=== PATIENT | female | born 1955 | race Caucasian/White ===

== ENCOUNTER 2018-03-07 07:24 | Day surgery (SDC) | payer MEDICARE, OTHER ==
[2015-08-01 12:26] VITALS: BMI 30.7
[2018-03-07] MEDS ORDERED: Propofol 10 mg/ml Inj (20 ML) ONE (10:29)
[2018-03-07] MEDS ORDERED: Lidocaine 4% (Laryng-O-Jet) Kit MM ONE (10:29)
[2018-03-07] MEDS ORDERED: Lactated Ringer's 1,000 ML IV ONE (10:30)
[2018-03-07] MEDS ORDERED: Lidocaine Hydrochloride 5 ML INJ ONE (10:30)
[2018-03-07] MEDS ORDERED: Midazolam 2 MG/2 ML VIAL ONE (10:30)
--- NOTE | 2018-03-07 10:31 | CP.SDSHP ---
Same Day Surgery H & P - History Proposed Procedure: EGD Pre-Op Diagnosis: Dyspepsia, malabsorption - Previous Medical/Surgical History Cardiac: Hypertension Pulmonary: Emphysema/COPD Endocrine/Metabolic: Diabetes Comments: Hyperlipidemia, pulmonary fibrosis Previous Surgical History: Lung biopsy - Allergies Allergies: Allergies acetaminophen [From Tylenol] Allergy (Verified 03/07/18 07:48) ITCHING codeine Allergy (Verified 03/07/18 07:48) ITCHING - Current Medications Current Medications: See reconciliation sheet - Physical Exam General Appearance: WD obese female in NAD Vital Signs: Vital Signs 03/07/18 07:55 Temperature 97. F L Pulse Rate 90 Respiratory 20 Rate Blood Pressure 132/53 L O2 Sat by Pulse 100 Oximetry Mental Status: Alert & Oriented x3 Neuro: WNL Heart: WNL Lungs: WNL GI: WNL - {Optional Preform as Required} Abdomen: WNL - Impression Impression: Dyspepsia, malabsorption, iron and B12 deficiency - Date & Time Date: 03/07/18 Time: 10:31 Short Stay Discharge - Short Stay Discharge Admitting Diagnosis/Reason for Visit: HIATAL HERNIA Disposition: HOME/ ROUTINE
[2018-03-07 11:16] VITALS: TEMP 98
[2018-03-07 12:03] VITALS: O2SAT 100
[2018-03-07 12:07] VITALS: BP 145/67; PULSE 97; RESP 18
== END 2018-03-07 11:59 | disposition home or self-care (01) ==
LOC: C.ENDO 07:24
PROVIDERS: ATTEND Internal Medicine Gastroenterology
DX: K31.7 Polyp of stomach and duodenum (principal); K29.60 Other gastritis without bleeding; K44.9 Diaphragmatic hernia without obstruction or gangrene
CPT/HCPCS: 43270; 82948; 88305; 88313; 88342; J2250; J2704; J3010; J7120

== ENCOUNTER 2018-03-08 17:28 | Emergency (ER) | payer MEDICARE, OTHER ==
[2018-03-08 17:28] VITALS: BMI 30.7
[2018-03-08] MEDS ORDERED: Sodium Chloride 0.9% 1,000 ML IV ONE (19:44)
--- NOTE | 2018-03-08 19:46 | C.PDOC ---
History Of Present Illness <Shaun Rebolledo R - Last Filed: 03/08/18 23:36> <Regina Mcintyre - Last Filed: 03/09/18 14:04> 62 year old female presents to the emergency department with complaints of left flank pain that started today. Patient states that the pain is worse with movement. Patient has a history of nephrolithiasis in the past. (AmauryShaun R) Onset/Duration Of Symptoms: Days (1) Current Symptoms Are (Timing): Still Present Quality Of Discomfort: "Pain" Previous Symptoms: Back Pain (left flank) Exacerbating Factor(s): Movement <Shaun Rebolledo R - Last Filed: 03/08/18 23:36> <Regina Mcintyre - Last Filed: 03/09/18 14:04> Chief Complaint (Nursing): Back Pain Past Medical History Reviewed: Historical Data, Nursing Documentation, Vital Signs - Medical History PMH: Anxiety, Arthritis (B/L KNEE), Crohn's Disease, Depression, Diabetes, Fibromyalgia, HTN, Hypercholesterolemia, Osteoporosis Denies: Chronic Kidney Disease Surgical History: Appendectomy, Cholecystectomy, Endoscopy Family History: States: No Known Family Hx - Social History Hx Tobacco Use: Yes Hx Alcohol Use: No Hx Substance Use: No - Immunization History Hx Tetanus Toxoid Vaccination: No Hx Influenza Vaccination: No Hx Pneumococcal Vaccination: No <Shaun Rebolledo - Last Filed: 03/08/18 23:36> Vital Signs: Last Vital Signs Temp 97.7 F 03/08/18 22:33 Pulse 100 H 03/08/18 22:33 Resp 18 03/08/18 22:33 BP 132/78 03/08/18 22:33 Pulse Ox 100 03/08/18 23:36 - [facility] Procedures CLOSED ENDOSCOPIC BIOPSY OF LUNG (08/10/14) ENDOSCOPIC BRONCHIAL BX (08/10/14) ESOPHAGOGASTRODUODENOSCOPY [EGD] W/CLOSED BIOPSY (07/13/14) SIMP EXC LYMPH STRUC NEC (08/10/14) THORACOSCOPIC EXCISION OF LESION OR TISSUE OF LUNG (08/10/14) Review Of Systems Except As Marked, All Systems Reviewed And Found Negative. Musculoskeletal: Positive for: Back Pain <Shaun Rebolledo - Last Filed: 03/08/18 23:36> Physical Exam - Physical Exam Appears: In Acute Distress (mild) Cardiovascular: Rhythm Regular Respiratory: Normal Breath Sounds Gastrointestinal/Abdominal: Soft, No Guarding, No Rebound Back: CVA Tenderness (left sided) <Shaun Rebolledo - Last Filed: 03/08/18 23:36> ED Course And Treatment - Laboratory Results Result Diagrams: 03/08/18 19:52 03/08/18 19:52 O2 Sat by Pulse Oximetry: 100 (RA) Pulse Ox Interpretation: Normal - CT Scan/US Abdomen/Pelvis Other Rad Studies (CT/US): Read By Radiologist, Radiology Report Reviewed CT/US Interpretation: 1. Mild infiltrate or atelectasis posterior lungs. 2. Nonobstructing stones in each kidney. No stones in either ureter and no hydronephrosis. 3. Fluid in the colon consistent with diarrhea. <Shaun Rebolledo - Last Filed: 03/08/18 23:36> - Laboratory Results Result Diagrams: 03/08/18 19:52 03/08/18 19:52 <Regina Mcintyre - Last Filed: 03/09/18 14:04> Medical Decision Making <Shaun Rebolledo - Last Filed: 03/08/18 23:36> <Regina Mcintyre - Last Filed: 03/09/18 14:04> Medical Decision Making: Plan: CT Abdomen and Pelvis w/o Contrast CMP Lipase CBC NaCl IV Fluids Toradol 30mg IVP Urinalysis (Shaun Rebolledo) CT scan was placed on PA in regards to 4mm nodules seen in the lungs. The patient was called back and informed of results. Patient understands and will follow up with the PMD/clinic. (Regina Mcintyre) Disposition Counseled Patient/Family Regarding: Diagnosis - Disposition Disposition Time: 22:17 - POA Present On Arrival: None <Shaun Rebolledo - Last Filed: 03/08/18 23:36> <Regina Mcintyre - Last Filed: 03/09/18 14:04> - Disposition Referrals: [facility] [Outside] Disposition: HOME/ ROUTINE Condition: STABLE Prescriptions: Cyclobenzaprine [Cyclobenzaprine HCl] 10 mg PO TIDPC #20 tab Naproxen [Naprosyn Tab] 375 mg PO TIDPC #20 tab Instructions: Low Back Pain in Adults, Lumbar Muscle Strain (DC) Forms: [employer] ([employer]) - Clinical Impression Clinical Impression: Lumbar sprain - Scribe Statement The provider has reviewed the documentation as recorded by the Scribe (Tello Joshua) <Shaun Rebolledo - Last Filed: 03/08/18 23:36> <Regina Mcintyre - Last Filed: 03/09/18 14:04> - Scribe Statement Provider Attestation: All medical record entries made by the Scribe were at my direction and personally dictated by me. I have reviewed the chart and agree that the record accurately reflects my personal performance of the history, physical exam, medical decision making, and the department course for this patient. I have also personally directed, reviewed, and agree with the discharge instructions and disposition. (Shaun Rebolledo)
[2018-03-08] MEDS ORDERED: Sodium Chloride 0.9% 1,000 ML ONE (19:56)
[2018-03-08 19:57] LABS: BASO # 0.1 K/uL (0.0-0.2); BASO % 0.7 % (0.0-2.0); EOS # 0.2 K/uL (0.0-0.7); EOS % 1.2 % (0.0-4.0); LYMPH # 2.8 K/uL (1.0-4.3)
[2018-03-08 20:00] LABS: SQUAMOUS EPITHIAL 3 /hpf (0-5); URINE BACTERIA RARE (<OCC); URINE BILIRUBIN NEGATIVE (NEGATIVE); URINE BLOOD NEGATIVE (NEGATIVE); URINE CLARITY Clear (Clear); URINE COLOR Yellow (YELLOW); URINE GLUCOSE (UA) 1+ mg/dL (Normal); URINE LEUKOCYTE ESTERASE NEG Leu/uL (Negative); URINE PROTEIN NEGATIVE (NEGATIVE); URINE UROBILINOGEN NORMAL mg/dL (0.2-1.0)
[2018-03-08 20:01] LABS: HEMOGLOBIN 7.1 g/dL (11.0-16.0); LYMPH % 20.1 % (20.0-40.0); MEAN CORPUSCULAR HEMOGLOBIN 15.5 pg (27.0-31.0); MEAN CORPUSCULAR HGB CONC 28.3 g/dL (33.0-37.0); MEAN PLATELET VOLUME 8.6 fL (7.2-11.7); MONO # 1.3 K/uL (0.0-0.8); MONO % 9.8 % (0.0-10.0); NEUT # 9.3 K/uL (1.8-7.0); NEUT % 68.2 % (50.0-75.0); NRBC % 0.3 % (0.0-2.0); RBC 4.6 Mil/uL (3.80-5.20); RED CELL DISTRIBUTION WIDTH 23.6 % (11.5-14.5); WHITE BLOOD COUNT 13.7 K/uL (4.8-10.8)
[2018-03-08 20:07] LABS: MEAN CELL VOLUME 54.7 fL (81.0-99.0)
[2018-03-08 20:08] LABS: ALB/GLOB RATIO 1.3 (1.0-2.1); ALBUMIN 4.1 g/dL (3.5-5.0); CALCIUM 8.9 mg/dl (8.6-10.4)
[2018-03-08 22:34] VITALS: BP 132/78; PULSE 100; RESP 18; TEMP 97.7
[2018-03-08 23:37] VITALS: O2SAT 100
--- NOTE | 2018-03-09 07:22 | CT ---
PROCEDURE: CT Abdomen and Pelvis without intravenous contrast HISTORY: left flank and lumbar pain COMPARISON: None. TECHNIQUE: Multiple contiguous axial images were performed through the abdomen and pelvis without the use of intravenous contrast. Subsequently, sagittal and coronal reformatted images were obtained. Radiation dose: Total exam DLP = 1046 mGy-cm. This CT exam was performed using one or more of the following dose reduction techniques: Automated exposure control, adjustment of the mA and/or kV according to patient size, and/or use of iterative reconstruction technique. FINDINGS: LOWER THORAX: Mild infiltrate and or atelectasis in the posterior lungs. 4 millimeter nodular density in the posterior aspect of the right lower lobe of the lung on series 3, image 27. LIVER: Fatty infiltration of the liver. GALLBLADDER AND BILE DUCTS: Cholecystectomy. PANCREAS: Unremarkable. No gross lesion or ductal dilatation. SPLEEN: Unremarkable. ADRENALS: Unremarkable. No mass. KIDNEYS AND URETERS: Nonobstructing calculi in each kidney. For example, measuring up to 3 millimeters in the right kidney and up to 3 millimeters in the left kidney. VASCULATURE: Mild atherosclerotic calcification and plaque. BOWEL: Fluid in the colon consistent with diarrhea. Right hemicolectomy. APPENDIX: Prior appendectomy. PERITONEUM: Unremarkable. No free fluid. No free air. LYMPH NODES: Unremarkable. No enlarged lymph nodes. BLADDER: Unremarkable. REPRODUCTIVE: Prior hysterectomy. BONES: Chronic rib fracture deformities in the posterior left 8th and 9th ribs. OTHER FINDINGS: None. IMPRESSION: 1. Mild infiltrate or atelectasis in the posterior lungs. 2. Nonobstructing calculi in each kidney. 3. Fluid in the colon consistent with diarrhea. 4. Chronic rib fracture deformities in the posterior left 8th and 9th ribs. 5. 4 millimeter nodular density in the posterior aspect of the right lower lobe of the lung on series 3, image 27. Six month interval followup study may be helpful if clinically indicated. Additional findings as above. These findings were preliminarily reported at 8:56 p.m. on 03/08/[address] Edgard Hilliard from [employer].
== END 2018-03-08 22:36 | disposition home or self-care (01) ==
LOC: C.ER 17:28
DX: S33.5XXA Sprain of ligaments of lumbar spine, initial encounter (principal); X58.XXXA Exposure to other specified factors, initial encounter
CPT/HCPCS: 74176; 80053; 81001; 83690; 85025; 96361; 96374; 99285; J1885; J7040

== ENCOUNTER 2018-04-22 13:54 | Inpatient (IN) | payer MEDICARE, OTHER ==
[2018-04-22 13:54] VITALS: BMI 30.7
--- NOTE | 2018-04-22 14:22 | C.PDOC ---
History Of Present Illness 62 y/o female referred to ED by Dr. Choi for evaluation of symptomatic anemia. As per patient, she had blood work done at Dr. Choi office and was told she had hemoglobin of 6.8. Patient denies weakness, numbness, fever, or any other complaints at this time. Time Seen by Provider: 04/22/18 14:16 Chief Complaint (Nursing): Abnormal Labs History Per: Patient History/Exam Limitations: no limitations Onset/Duration Of Symptoms: Days Current Symptoms Are (Timing): Still Present Past Medical History Reviewed: Historical Data, Nursing Documentation, Vital Signs Vital Signs: Last Vital Signs Temp 98.1 F 04/22/18 14:05 Pulse 121 H 04/22/18 14:05 Resp 16 04/22/18 14:05 BP 132/69 04/22/18 14:05 Pulse Ox 99 04/22/18 16:03 - Medical History PMH: Anxiety, Arthritis (B/L KNEE), Crohn's Disease, Depression, Diabetes, Fibromyalgia, HTN, Hypercholesterolemia, Osteoporosis Surgical History: Appendectomy, Cholecystectomy, Endoscopy - [facility] Procedures CLOSED ENDOSCOPIC BIOPSY OF LUNG (08/10/14) ENDOSCOPIC BRONCHIAL BX (08/10/14) ESOPHAGOGASTRODUODENOSCOPY [EGD] W/CLOSED BIOPSY (07/13/14) SIMP EXC LYMPH STRUC NEC (08/10/14) THORACOSCOPIC EXCISION OF LESION OR TISSUE OF LUNG (08/10/14) Family History: States: No Known Family Hx - Social History Hx Tobacco Use: Yes Hx Alcohol Use: No Hx Substance Use: No - Immunization History Hx Tetanus Toxoid Vaccination: No Hx Influenza Vaccination: No Hx Pneumococcal Vaccination: No Review Of Systems Constitutional: Negative for: Fever, Chills Cardiovascular: Negative for: Chest Pain Respiratory: Negative for: Shortness of Breath Gastrointestinal: Negative for: Nausea, Vomiting Skin: Negative for: Rash Physical Exam - Physical Exam Appears: Non-toxic, No Acute Distress Skin: Warm, Dry, Pale Head: Atraumatic, Normacephalic Eye(s): bilateral: Normal Inspection, EOMI Oral Mucosa: Moist Neck: Normal ROM, Supple Cardiovascular: Rhythm Regular Respiratory: Normal Breath Sounds, No Rales, No Rhonchi, No Wheezing Gastrointestinal/Abdominal: Soft, No Tenderness, No Distention, No Rebound Rectal: Normal Exam, No Blood Streaked Stool, No Hemorrhoids, No Mass Neurological/Psych: Oriented x3, Normal Speech, Normal Cognition ED Course And Treatment - Laboratory Results Result Diagrams: 04/22/18 14:35 04/22/18 14:35 Lab Interpretation: Abnormal (+ anemia, INR 2.2) ECG: Interpreted By Me ECG Rhythm: Sinus Rhythm, Sinus Tachycardia ECG Interpretation: Abnormal Rate From EC (BPM) O2 Sat by Pulse Oximetry: 99 (RA) Pulse Ox Interpretation: Normal - Radiology CXR: Interpreted by Me CXR Interpretation: Yes: No Acute Disease Reevaluation Time: 16:02 Reassessment Condition: Improved - Physician Consult Information Outcome Of Conversation: 1420: d/w PMD, johanne Howell to admit. 1530: d/w johanne Lai to consult Disposition Doctor Will See Patient In The: Hospital Counseled Patient/Family Regarding: Studies Performed, Diagnosis - Disposition Disposition: HOSPITALIZED Disposition Time: 16:03 Condition: GOOD - Clinical Impression Clinical Impression: Symptomatic anemia - Scribe Statement The provider has reviewed the documentation as recorded by the Espinozaibmariel Fajardo All medical record entries made by the Ne were at my direction and personally dictated by me. I have reviewed the chart and agree that the record accurately reflects my personal performance of the history, physical exam, medical decision making, and the department course for this patient. I have also personally directed, reviewed, and agree with the discharge instructions and disposition.
--- NOTE | 2018-04-22 14:41 | RAD ---
PROCEDURE: CHEST RADIOGRAPH, 1 VIEW HISTORY: Shortness of breath COMPARISON: 08/24/2014. FINDINGS: LUNGS: The lungs are well inflated and clear. There is mild pulmonary venous congestion. PLEURA: No pneumothorax or pleural fluid seen. CARDIOVASCULAR: Normal. OSSEOUS STRUCTURES: No significant abnormalities. VISUALIZED UPPER ABDOMEN: Normal. OTHER FINDINGS: None. IMPRESSION: No active pulmonary disease.
[2018-04-22 14:44] LABS: BASO # 0.1 K/uL (0.0-0.2); EOS % 0.2 % (0.0-4.0); LYMPH % 9.8 % (20.0-40.0); MEAN CELL VOLUME 52.3 fL (81.0-99.0); MEAN CORPUSCULAR HEMOGLOBIN 13.8 pg (27.0-31.0); MEAN CORPUSCULAR HGB CONC 26.3 g/dL (33.0-37.0); MEAN PLATELET VOLUME 8.7 fL (7.2-11.7); MONO # 0.3 K/uL (0.0-0.8); MONO % 3.3 % (0.0-10.0); NEUT # 8.6 K/uL (1.8-7.0); NEUT % 85.7 % (50.0-75.0); NRBC % 0.3 % (0.0-2.0); PLATELET COUNT 255 K/uL (130-400); RBC 5.06 Mil/uL (3.80-5.20); RED CELL DISTRIBUTION WIDTH 24.1 % (11.5-14.5)
[2018-04-22 14:47] LABS: INR 2.2; PROTHROMBIN TIME 24.5 SECONDS (9.7-12.2)
[2018-04-22 15:04] LABS: ALB/GLOB RATIO 1.5 (1.0-2.1); ALBUMIN 4.4 g/dL (3.5-5.0); ALT/SGPT 38 U/L (9-52); AST/SGOT 72 U/L (14-36); BLOOD UREA NITROGEN 13 mg/dL (7-17); CALCIUM 9.3 mg/dl (8.6-10.4); GFR AFRICAN-AMERICAN > 60; GFR NON-AFRICAN AMERICAN > 60
[2018-04-22 15:16] LABS: B-TYPE NATRIURETIC PEPTIDE 45.6 pg/mL (0-900)
[2018-04-22 15:20] LABS: LYMPHOCYTE 7 % (20-40); MONOCYTE 3 % (0-10); NEUTROPHIL 90 % (50-75); TOTAL CELLS COUNTED 100
[2018-04-22 15:21] LABS: PLATELET ESTIMATE NORMAL (NORMAL)
[2018-04-22 15:23] LABS: ANISOCYTOSIS SLIGHT; HYPOCHROMIC MODERATE; MICROCYTOSIS SLIGHT; OVALOCYTES SLIGHT; POIKILOCYTOSIS SLIGHT; TARGET CELLS SLIGHT; TEARDROP CELLS SLIGHT
[2018-04-22 15:24] LABS: POLYCHROMIC SLIGHT
--- NOTE | 2018-04-22 15:43 | CP.PCM.PN ---
Subjective - Date & Time of Evaluation Date of Evaluation: 04/22/18 Time of Evaluation: 15:41 - Subjective Subjective: PGY3 Resident - Medicine Progress Note for Dr. Choi This 62 yo female with PMHx of Hemorrhoids (internal / external), celiac dz, PE , Pulmonary Fibrosis, DM, HTN, HLD, depression - presents c/o lethargy for the past 3 months. She states that here Hgb reading in her PMDs office has been between 6.5 and 7.5 during this time. She also reports blood on her toilet paper upon wiping x 8 months, but she thought that this was a normal finding with hemorrhoids, and did not tell her PMD. She denies any overt blood in the toilet bowl or coating her stools. She also c/o associated dyspnea at rest, over the last 3 months, and she associates this with her hx of pulmonary fibrosis. She feels that this is abnormal for her. She admits to chronic diarrhea 2/2 her hx of Celiac dz (followed by Dr. Marr). Denies f/c, chest pain, change in vision, palpitations, constipation, LE edema, bruising, change in urinary stream, or any additional acute complaints. 12-point review of systems is otherwise negative without any additional acute complaints. PMHx: Hemorrhoids (internal / external), celiac dz, PE, Pulmonary Fibrosis, DM, HTN, HLD, depression PSHx: Appendectomy, Cholecystectomy, Endoscopy Meds: see EMR Allergies: percocet FamHx: Father of MD at 72yo; Mom alive/well at 92 with HTN and Alzheimers SocHx: Denies ETOH, Tobacco, or illicit drug use. On disability 2/2 pulm fibrosis PMD: Steph Objective - Vital Signs/Intake and Output Vital Signs (last 24 hours): Temp Pulse Resp BP Pulse Ox 98.1 F 121 H 16 132/69 99 04/22/18 14:05 04/22/18 14:05 04/22/18 14:05 04/22/18 14:05 04/22/18 14:50 - Labs Labs: 04/22/18 14:35 04/22/18 14:35 PT 24.5 SECONDS (9.7-12.2) H 04/22/18 14:35 INR 2.2 04/22/18 14:35 APTT 40 SECONDS (21-34) H 04/22/18 14:35 - Additional Findings Additional findings: - Constitutional Appears: No Acute Distress, Lethargic - Head Exam Head Exam: NORMAL INSPECTION, NORMOCEPHALIC - Eye Exam Eye Exam: Normal appearance - ENT Exam ENT Exam: Mucous Membranes Moist - Respiratory Exam Respiratory Exam: Decreased Breath Sounds, NORMAL BREATHING PATTERN. absent: Respiratory Distress, Wheezes - Cardiovascular Exam Cardiovascular Exam: Tachycardia, +S1, +S2 - GI/Abdominal Exam GI & Abdominal Exam: Normal Bowel Sounds, Soft. absent: Distended, Tenderness -Rectal exam - minimal stool in rectal vault (fecal occult sent) -external hemorrhoid noted. No internal hemorrhoids palpated. - Extremities Exam Extremities Exam: Full ROM, Normal Inspection. absent: Pedal Edema, Tenderness - Neurological Exam Neurological exam: Alert, Oriented x3 - Psychiatric Exam Psychiatric exam: Normal Affect, Normal Mood - Skin Skin Exam: Dry, Intact, Normal Color, Warm Assessment and Plan - Assessment and Plan (Free Text) Assessment: Anemia Hgb 7.0 today. f/u tibc, fe, %sat, ferritin, retic count start Ferrlicit 125mg IVPB qd in AM type and cross - transfuse 1u PRBCs. Homorrhoids - Internal / External with bleed patient has noted blood the toilet paper for the past 8mo but never told PMD f/u fecal occult (collected) GI consult, Dr. Marr, f/u recs Hold warfarin 6mg po qd hold ASA 325mg po qd Pulmonary Fibrosis continue prednisone 20mg po qd Diabetes Continue home lantus 40u SC HS Novolog ISS ACHS high dose continue metformin 1000mg po BID -Hold home Novolog 30u SC pre-meal insuline (see how pt does on hospital diet) -Hold Glipizide 5mg BID (see how pt does on hospital diet) f/u A1c HTN BP 138/54 on admission continue clonidine 0.3mg qd enalapril 5mg PO qd HLD continue fenofibrate 145 HS Anxiety / Depression continue Zoloft 100mg PO HS continue xanax 0.25mg po HS Prophylaxis scds hold heparin 2/2 gi bleed protonix 40mg qd Case discussed with attending. All medical management as per Dr. Che Choi.
[2018-04-22 16:53] LABS: IRON 16 ug/dL (37-170)
[2018-04-22 17:03] LABS: % IRON SATURATION 3 (20-55); TOTAL IRON BINDING CAPACITY 496 ug/dL (250-450)
[2018-04-22] MEDS: (Novolog) Insulin Aspart, Recombinant 100 u/ml 10 ml vial SC SCH ×2 (17:17→21:12)
--- NOTE | 2018-04-22 17:22 | CP.PCM.CON ---
History of Present Illness - History of Present Illness History of Present Illness: This is a 62 year old woman with anemia. Patient is well known to me from the office. She was referred to the ER after blood work in her primary care [facility]'s office documented anemia. she complains of weakness, occasional nausea and heartburn. She also reports having daily diarrhea, watery bowel movements up to five times daily, and she sees blood on the toilet paper after wiping, although there is no blood in the stool itself. She thinks she has lost weight recently, but is unable to quantify the weight loss. She denies having abdominal pain, vomiting, loss of appetite, constipation, difficulty swallowing. Patient has a long history of digestive complaints. She was diagnosed with an abdominal abscess in 1999, necessitating a small bowel resection. This was attributed to Crohn's disease at the time, but pathology was not diagnostic. She was also diagnosed with celiac disease on the basis of positive serology, and has done well on a gluten free diet. Recent blood work 02/11/2018 included celiac serology. showing negative deamidated glidadin antibodies and negative tissue transglutaminase antibodies (both IgA and IgG). Other results included HGB 7.6, MCV 62, iron 18, TIBC 445, ferritin 9, B12 152, and folate >20. She recently had EGD on 03/07/2018 which showed gastritis and a polyp. Colonoscopy was scheduled but not done. Last colonoscopy was 01/15/11 which was normal except for right hemicolectomy. Review of Systems - Review of Systems All systems: reviewed and no additional remarkable complaints except - Constitutional Constitutional: Weight Loss. absent: Anorexia, Chills, Fever - Cardiovascular Cardiovascular: absent: Chest Pain, Dyspnea, Edema, Palpitations - Respiratory Respiratory: absent: Dyspnea, Dyspnea on Exertion - Gastrointestinal Gastrointestinal: Diarrhea, Heartburn, Nausea. absent: Abdominal Pain, Constipation, Dysphagia, Hematochezia, Vomiting - Integumentary Integumentary: absent: Rash Past Patient History - Past Medical History & Family History Past Medical History?: Yes - Past Social History Smoking Status: Never Smoked - CARDIAC Hx Hypercholesterolemia: Yes Hx Hypertension: Yes - PULMONARY Other/Comment: PULMONARY Fibrosis, oxygen dependant. - NEUROLOGICAL Hx Neurological Disorder: Yes Hx Dizziness: Yes - HEENT Hx HEENT Problems: No - RENAL Hx Chronic Kidney Disease: No - ENDOCRINE/METABOLIC Hx Diabetes Mellitus Type 2: Yes - HEMATOLOGICAL/ONCOLOGICAL Hx Blood Disorders: No - INTEGUMENTARY Hx Dermatological Problems: No - MUSCULOSKELETAL/RHEUMATOLOGICAL Hx Arthritis: Yes (B/L KNEE) Hx Osteoporosis: Yes - GASTROINTESTINAL Hx Crohn's Disease: Yes - GENITOURINARY/GYNECOLOGICAL Hx Genitourinary Disorders: No - PSYCHIATRIC Hx Anxiety: Yes Hx Depression: Yes Hx Substance Use: No - SURGICAL HISTORY Hx Appendectomy: Yes Hx Cholecystectomy: Yes - ANESTHESIA Hx Anesthesia: Yes Hx Anesthesia Reactions: No Hx Malignant Hyperthermia: No Meds Allergies/Adverse Reactions: Allergies Allergy/AdvReac Type Severity Reaction Status Date / Time acetaminophen [From Tylenol] Allergy ITCHING Verified 04/22/18 14:04 codeine Allergy ITCHING Verified 04/22/18 14:04 - Medications Medications: Current Medications Alprazolam (Xanax) 0.25 mg PO HS [facility] Stop: 04/29/18 22:01 Clonidine HCl (Catapres) 0.3 mg PO DAILY [facility] Cyclobenzaprine HCl (Flexeril) 10 mg PO TIDPC [facility] Diltiazem HCl (Cardizem Sr) 60 mg PO BID [facility] Donepezil HCl (Aricept) 5 mg PO DAILY [facility] Fenofibrate (Tricor) 145 mg PO HS [facility] Ferric Sodium Gluconate Complex (Ferrlecit) 125 mg IVPB DAILY [facility] Stop: 05/01/18 10:01 Folic Acid (Folic Acid) 1 mg PO DAILY [facility] Insulin Aspart (Novolog) 0 unit SC ACHS [facility] PRN Reason: Protocol Last Admin: 04/22/18 17:17 Dose: 6 unit Insulin Detemir (Levemir) 40 unit SC HS [facility] Metformin HCl (Glucophage) 1,000 mg PO BID [facility] Metoclopramide HCl (Reglan) 10 mg PO ACHS [facility] Last Admin: 04/22/18 16:36 Dose: 10 mg Pantoprazole Sodium (Protonix Ec Tab) 40 mg PO DAILY [facility] Prednisone (Prednisone Tab) 20 mg PO DAILY [facility] Sertraline HCl (Zoloft) 100 mg PO HS [facility] Physical Exam - Head Exam Head Exam: ATRAUMATIC, NORMOCEPHALIC - Eye Exam Eye Exam: EOMI, PERRL - Neck Exam Neck exam: Negative for: Lymphadenopathy, Thyromegaly - Respiratory Exam Respiratory Exam: NORMAL BREATHING PATTERN. absent: Rales, Rhonchi, Wheezes - Cardiovascular Exam Cardiovascular Exam: REGULAR RHYTHM, +S1, +S2. absent: Gallop, Rubs, Systolic Murmur - GI/Abdominal Exam GI & Abdominal Exam: Normal Bowel Sounds, Soft. absent: Mass, Organomegaly, Tenderness - Rectal Exam Rectal Exam: Deferred - Extremities Exam Extremities exam: Negative for: calf tenderness, pedal edema Results - Vital Signs Recent Vital Signs: Last Vital Signs Temp 98.2 F 04/22/18 17:16 Pulse 108 H 04/22/18 17:16 Resp 16 04/22/18 17:16 BP 136/54 L 04/22/18 17:16 Pulse Ox 100 04/22/18 17:16 - Labs Result Diagrams: 04/22/18 14:35 04/22/18 14:35 Labs: Laboratory Results - last 24 hr 04/22/18 04/22/18 04/22/18 14:35 14:35 14:35 WBC 10.0 RBC 5.06 Hgb 7.0 L Hct 26.5 L MCV 52.3 L D MCH 13.8 L MCHC 26.3 L RDW 24.1 H Plt Count 255 D MPV 8.7 Neut % (Auto) 85.7 H Lymph % (Auto) 9.8 L [place] % (Auto) 3.3 Eos % (Auto) 0.2 Baso % (Auto) 1.0 Neut # (Auto) 8.6 H Lymph # (Auto) 1.0 [place] # (Auto) 0.3 Eos # (Auto) 0.0 Baso # (Auto) 0.1 Neutrophils % (Manual) 90 H Lymphocytes % (Manual) 7 L Monocytes % (Manual) 3 Platelet Estimate Normal Polychromasia Slight Hypochromasia (manual) Moderate Poikilocytosis (manual Slight Basophilic Stippling Slight Anisocytosis (manual) Slight Microcytosis (manual) Slight Macrocytosis (manual) Slight Target Cells Slight Tear Drop Cells Slight Ovalocytes Slight Retic Count PT 24.5 H INR 2.2 APTT 40 H Sodium 140 Potassium 5.0 Chloride 103 Carbon Dioxide 18 L Anion Gap 24 H BUN 13 Creatinine 0.8 Est GFR ( Amer) > 60 Est GFR (Non-Af Amer) > 60 POC Glucose (mg/dL) Random Glucose 262 H Hemoglobin A1c Calcium 9.3 Iron TIBC % Saturation Total Bilirubin 0.8 AST 72 H D ALT 38 Alkaline Phosphatase 93 Troponin I < 0.0120 NT-Pro-B Natriuret Pep 45.6 Total Protein 7.4 Albumin 4.4 Globulin 2.9 Albumin/Globulin Ratio 1.5 Free T4 Stool Occult Blood Blood Type Antibody Screen 04/22/18 04/22/18 04/22/18 14:35 16:22 16:22 WBC RBC Hgb Hct MCV MCH MCHC RDW Plt Count MPV Neut % (Auto) Lymph % (Auto) [place] % (Auto) Eos % (Auto) Baso % (Auto) Neut # (Auto) Lymph # (Auto) [place] # (Auto) Eos # (Auto) Baso # (Auto) Neutrophils % (Manual) Lymphocytes % (Manual) Monocytes % (Manual) Platelet Estimate Polychromasia Hypochromasia (manual) Poikilocytosis (manual Basophilic Stippling Anisocytosis (manual) Microcytosis (manual) Macrocytosis (manual) Target Cells Tear Drop Cells Ovalocytes Retic Count 3.1 H PT INR APTT Sodium Potassium Chloride Carbon Dioxide Anion Gap BUN Creatinine Est GFR ( Amer) Est GFR (Non-Af Amer) POC Glucose (mg/dL) Random Glucose Hemoglobin A1c Calcium Iron 16 L TIBC 496 H % Saturation 3 L Total Bilirubin AST ALT Alkaline Phosphatase Troponin I NT-Pro-B Natriuret Pep Total Protein Albumin Globulin Albumin/Globulin Ratio Free T4 Stool Occult Blood Blood Type B POSITIVE Antibody Screen Negative 04/22/18 04/22/18 04/22/18 16:22 16:22 16:22 WBC RBC Hgb Hct MCV MCH MCHC RDW Plt Count MPV Neut % (Auto) Lymph % (Auto) [place] % (Auto) Eos % (Auto) Baso % (Auto) Neut # (Auto) Lymph # (Auto) [place] # (Auto) Eos # (Auto) Baso # (Auto) Neutrophils % (Manual) Lymphocytes % (Manual) Monocytes % (Manual) Platelet Estimate Polychromasia Hypochromasia (manual) Poikilocytosis (manual Basophilic Stippling Anisocytosis (manual) Microcytosis (manual) Macrocytosis (manual) Target Cells Tear Drop Cells Ovalocytes Retic Count PT INR APTT Sodium Potassium Chloride Carbon Dioxide Anion Gap BUN Creatinine Est GFR ( Amer) Est GFR (Non-Af Amer) POC Glucose (mg/dL) Random Glucose Hemoglobin A1c 6.4 Calcium Iron TIBC % Saturation Total Bilirubin AST ALT Alkaline Phosphatase Troponin I NT-Pro-B Natriuret Pep Total Protein Albumin Globulin Albumin/Globulin Ratio Free T4 1.21 Stool Occult Blood Negative Blood Type Antibody Screen 04/22/18 16:39 WBC RBC Hgb Hct MCV MCH MCHC RDW Plt Count MPV Neut % (Auto) Lymph % (Auto) [place] % (Auto) Eos % (Auto) Baso % (Auto) Neut # (Auto) Lymph # (Auto) [place] # (Auto) Eos # (Auto) Baso # (Auto) Neutrophils % (Manual) Lymphocytes % (Manual) Monocytes % (Manual) Platelet Estimate Polychromasia Hypochromasia (manual) Poikilocytosis (manual Basophilic Stippling Anisocytosis (manual) Microcytosis (manual) Macrocytosis (manual) Target Cells Tear Drop Cells Ovalocytes Retic Count PT INR APTT Sodium Potassium Chloride Carbon Dioxide Anion Gap BUN Creatinine Est GFR ( Amer) Est GFR (Non-Af Amer) POC Glucose (mg/dL) 269 H Random Glucose Hemoglobin A1c Calcium Iron TIBC % Saturation Total Bilirubin AST ALT Alkaline Phosphatase Troponin I NT-Pro-B Natriuret Pep Total Protein Albumin Globulin Albumin/Globulin Ratio Free T4 Stool Occult Blood Blood Type Antibody Screen Assessment & Plan (1) Anemia Assessment and Plan: Patient has anemia with documented iron deficiency and B12 deficiency (02/11/2018 ). She states that she was taking iron supplements, but not B12. The celiac disease is not active, judging by the negative serology and normal duodenal biopsy (03/07/18). There was no evidence of autoimmune gastritis. The most likely etiology of the anemia would be small bowel bacterial overgrowth, which would also explain the elevated folic acid level. since the last colonosocpy was seven years ago, it should be repeated, which can be scheduled as an outpatient. Status: Acute
[2018-04-22] MEDS ORDERED: (Novolog) Insulin Aspart, Recombinant 100 u/ml 10 ml vial ONE (17:23)
[2018-04-22 17:30] LABS: FERRITIN 5.4 ng/mL
[2018-04-22] MEDS ORDERED: METFORMIN HYDROCHLORIDE 1000 MG PO SCH (18:00)
[2018-04-22] MEDS ORDERED: Home Med 1 UNIT (Prednisone [Prednisone] 10 MG) PO SCH (18:00)
[2018-04-22] MEDS: diltiaZEM 60 mg ER Cap PO SCH (18:39)
[2018-04-22 20:07] LABS: FOLATE > 20.0 ng/mL
[2018-04-22] MEDS: Insulin Detemir 100 units/ml Vial (Levemir) SC SCH (21:44)
[2018-04-22] MEDS ORDERED: INSULIN DETEMIR 40 UNIT SQ SCH (22:00)
[2018-04-23] MEDS: (Novolog) Insulin Aspart, Recombinant 100 u/ml 10 ml vial SC SCH ×4 (07:55→21:31)
[2018-04-23 08:49] LABS: BASO # 0.1 K/uL (0.0-0.2); EOS # 0.1 K/uL (0.0-0.7); EOS % 1.3 % (0.0-4.0); HEMOGLOBIN 7.4 g/dL (11.0-16.0); LYMPH # 2.6 K/uL (1.0-4.3); LYMPH % 26.5 % (20.0-40.0); MEAN CELL VOLUME 53.8 fL (81.0-99.0); MEAN CORPUSCULAR HEMOGLOBIN 14.8 pg (27.0-31.0); MEAN CORPUSCULAR HGB CONC 27.5 g/dL (33.0-37.0); MEAN PLATELET VOLUME 8.7 fL (7.2-11.7); MONO # 0.7 K/uL (0.0-0.8); MONO % 7.3 % (0.0-10.0); NEUT # 6.3 K/uL (1.8-7.0); NEUT % 63.9 % (50.0-75.0); NRBC % 0.4 % (0.0-2.0); RBC 4.99 Mil/uL (3.80-5.20); RED CELL DISTRIBUTION WIDTH 26.1 % (11.5-14.5); WHITE BLOOD COUNT 9.9 K/uL (4.8-10.8)
[2018-04-23 09:22] LABS: ALB/GLOB RATIO 1.4 (1.0-2.1); ALT/SGPT 36 U/L (9-52); AST/SGOT 60 U/L (14-36); BLOOD UREA NITROGEN 13 mg/dL (7-17); CALCIUM 8.8 mg/dl (8.6-10.4); GFR AFRICAN-AMERICAN > 60; GFR NON-AFRICAN AMERICAN > 60
[2018-04-23] MEDS: diltiaZEM 60 mg ER Cap PO SCH ×2 (09:46→18:37)
[2018-04-23] MEDS: Pantoprazole 40 mg EC Tab PO SCH (09:46)
[2018-04-23] MEDS: Ferric Sodium Gluconat Complex 62.5 mg/5 ml Vial IVPB SCH (09:46)
[2018-04-23] MEDS ORDERED: Aspirin 325 mg EC Tablets PO SCH (10:00)
[2018-04-23] MEDS ORDERED: ENALAPRIL MALEATE PO SCH ×2 (10:00)
[2018-04-23] MEDS ORDERED: Pantoprazole 40 mg EC Tab PO SCH (10:00)
--- NOTE | 2018-04-23 11:17 | CP.PCM.PN ---
Subjective - Date & Time of Evaluation Date of Evaluation: 04/23/18 Time of Evaluation: 11:14 - Subjective Subjective: COVERING DR BAEZ No pain or bleeding. Had one unit PRBCs Desires work up prior to discharge. Objective - Vital Signs/Intake and Output Vital Signs (last 24 hours): Temp Pulse Resp BP Pulse Ox 98.4 F 92 H 20 127/72 100 04/23/18 08:00 04/23/18 08:00 04/23/18 08:00 04/23/18 09:45 04/23/18 08:00 Intake and Output: 04/23/18 04/23/18 06:59 18:59 Intake Total 360 Balance 360 - Medications Medications: Current Medications Alprazolam (Xanax) 0.25 mg PO [facility] Stop: 04/29/18 22:01 Last Admin: 04/22/18 21:46 Dose: 0.25 mg Clonidine HCl (Catapres) 0.3 mg PO DAILY [facility] Last Admin: 04/23/18 09:46 Dose: 0.3 mg Cyanocobalamin (Vitamin B12 1000 Mcg/Ml Inj) 1,000 mcg IM QD5 [facility] Cyclobenzaprine HCl (Flexeril) 10 mg PO TIDPC [facility] Last Admin: 04/23/18 09:46 Dose: 10 mg Diltiazem HCl (Cardizem Sr) 60 mg PO BID [facility] Last Admin: 04/23/18 09:46 Dose: 60 mg Donepezil HCl (Aricept) 5 mg PO DAILY [facility] Last Admin: 04/23/18 09:46 Dose: 5 mg Enalapril Maleate (Vasotec) 5 mg PO DAILY [facility] Last Admin: 04/23/18 09:45 Dose: 5 mg Fenofibrate (Tricor) 145 mg PO HS [facility] Last Admin: 04/22/18 22:39 Dose: 145 mg Ferric Sodium Gluconate Complex (Ferrlecit) 125 mg IVPB DAILY [facility] Stop: 05/01/18 10:01 Last Admin: 04/23/18 09:46 Dose: 125 mg Folic Acid (Folic Acid) 1 mg PO DAILY [facility] Last Admin: 04/23/18 09:46 Dose: 1 mg Insulin Aspart (Novolog) 0 unit SC ACHS [facility] PRN Reason: Protocol Last Admin: 04/23/18 07:55 Dose: Not Given Insulin Detemir (Levemir) 40 unit SC HS [facility] Last Admin: 04/22/18 21:44 Dose: 40 unit Metformin HCl (Glucophage) 1,000 mg PO BID [facility] Last Admin: 04/23/18 09:45 Dose: 1,000 mg Metoclopramide HCl (Reglan) 10 mg PO ACHS [facility] Last Admin: 04/23/18 06:31 Dose: 10 mg Pantoprazole Sodium (Protonix Ec Tab) 40 mg PO DAILY [facility] Last Admin: 04/23/18 09:46 Dose: 40 mg Prednisone (Prednisone Tab) 20 mg PO DAILY [facility] Last Admin: 04/23/18 09:46 Dose: 20 mg Rifaximin (Xifaxan) 550 mg PO BID [facility] PRN Reason: Protocol Last Admin: 04/23/18 09:45 Dose: 550 mg Sertraline HCl (Zoloft) 100 mg PO [facility] Last Admin: 04/22/18 21:46 Dose: 100 mg - Labs Labs: 04/23/18 08:37 04/23/18 08:37 PT 24.5 SECONDS (9.7-12.2) H 04/22/18 14:35 INR 2.2 04/22/18 14:35 APTT 40 SECONDS (21-34) H 04/22/18 14:35 - Constitutional Appears: No Acute Distress - Head Exam Head Exam: ATRAUMATIC, NORMOCEPHALIC - Eye Exam Eye Exam: EOMI, PERRL - Respiratory Exam Respiratory Exam: NORMAL BREATHING PATTERN - Cardiovascular Exam Cardiovascular Exam: REGULAR RHYTHM, +S1 - GI/Abdominal Exam GI & Abdominal Exam: Soft, Normal Bowel Sounds. absent: Tenderness, Mass, Rebound - Extremities Exam Extremities Exam: Normal Inspection. absent: Pedal Edema Assessment and Plan (1) B12 deficiency anemia Assessment & Plan: Has been on B12 replacement Status: Acute (2) Celiac disease Assessment & Plan: Gluten free diet Status: Acute (3) Symptomatic anemia Assessment & Plan: Plan for colonoscopy as outpatient or next week if she is still to be an inpatient. Continue transfusion and supportive care. Status: Acute
[2018-04-23] MEDS: Insulin Detemir 100 units/ml Vial (Levemir) SC SCH (21:26)
[2018-04-24 06:51] LABS: MCH 14.9 pg (27.0-33.0); MCV 55.6 fL (80.0-100.0)
[2018-04-24] MEDS: (Novolog) Insulin Aspart, Recombinant 100 u/ml 10 ml vial SC SCH ×4 (07:53→22:33)
[2018-04-24 09:07] LABS: BASO # 0.1 K/uL (0.0-0.2); BASO % 1.5 % (0.0-2.0); EOS # 0.1 K/uL (0.0-0.7); EOS % 1.4 % (0.0-4.0); HEMOGLOBIN 8.6 g/dL (11.0-16.0); LYMPH # 2.4 K/uL (1.0-4.3); LYMPH % 23.6 % (20.0-40.0); MEAN CORPUSCULAR HEMOGLOBIN 17.3 pg (27.0-31.0); MEAN CORPUSCULAR HGB CONC 30.1 g/dL (33.0-37.0); MEAN PLATELET VOLUME 8.8 fL (7.2-11.7); MONO # 0.8 K/uL (0.0-0.8); MONO % 8.2 % (0.0-10.0); NEUT # 6.7 K/uL (1.8-7.0); NEUT % 65.3 % (50.0-75.0); NRBC % 0.1 % (0.0-2.0); RBC 4.97 Mil/uL (3.80-5.20); RED CELL DISTRIBUTION WIDTH 29.5 % (11.5-14.5); WHITE BLOOD COUNT 10.2 K/uL (4.8-10.8)
[2018-04-24 09:10] LABS: MEAN CELL VOLUME 57.3 fL (81.0-99.0)
[2018-04-24] MEDS: diltiaZEM 60 mg ER Cap PO SCH ×2 (09:47→17:31)
[2018-04-24] MEDS: Pantoprazole 40 mg EC Tab PO SCH (09:47)
[2018-04-24] MEDS: Ferric Sodium Gluconat Complex 62.5 mg/5 ml Vial IVPB SCH (09:49)
[2018-04-24 09:54] LABS: ALB/GLOB RATIO 1.4 (1.0-2.1); ALT/SGPT 44 U/L (9-52); AST/SGOT 78 U/L (14-36); BLOOD UREA NITROGEN 14 mg/dL (7-17); CALCIUM 8.9 mg/dl (8.6-10.4); GFR AFRICAN-AMERICAN > 60; GFR NON-AFRICAN AMERICAN > 60
--- NOTE | 2018-04-24 10:41 | CP.PCM.PN ---
Subjective - Date & Time of Evaluation Date of Evaluation: 04/24/18 Time of Evaluation: 10:39 - Subjective Subjective: COVERING DR BAEZ: No pain or bleeding. Iron infusion in progress hgb=8.6 Objective - Vital Signs/Intake and Output Vital Signs (last 24 hours): Temp Pulse Resp BP Pulse Ox 98.7 F 92 H 18 111/58 L 100 04/24/18 07:25 04/24/18 07:25 04/24/18 07:25 04/24/18 09:48 04/24/18 07:25 Intake and Output: 04/24/18 04/24/18 06:59 18:59 Intake Total 905 Balance 905 - Medications Medications: Current Medications Alprazolam (Xanax) 0.25 mg PO [facility] Stop: 04/29/18 22:01 Last Admin: 04/23/18 21:25 Dose: 0.25 mg Clonidine HCl (Catapres) 0.3 mg PO DAILY [facility] Last Admin: 04/24/18 09:49 Dose: 0.3 mg Cyanocobalamin (Vitamin B12 1000 Mcg/Ml Inj) 1,000 mcg IM QD5 [facility] Cyclobenzaprine HCl (Flexeril) 10 mg PO TIDPC [facility] Last Admin: 04/24/18 09:47 Dose: 10 mg Diltiazem HCl (Cardizem Sr) 60 mg PO BID [facility] Last Admin: 04/24/18 09:47 Dose: 60 mg Donepezil HCl (Aricept) 5 mg PO DAILY [facility] Last Admin: 04/24/18 09:48 Dose: 5 mg Enalapril Maleate (Vasotec) 5 mg PO DAILY [facility] Last Admin: 04/24/18 09:48 Dose: 5 mg Fenofibrate (Tricor) 145 mg PO HS [facility] Last Admin: 04/23/18 21:25 Dose: 145 mg Ferric Sodium Gluconate Complex (Ferrlecit) 125 mg IVPB DAILY [facility] Stop: 05/01/18 10:01 Last Admin: 04/24/18 09:49 Dose: 125 mg Folic Acid (Folic Acid) 1 mg PO DAILY [facility] Last Admin: 04/24/18 09:49 Dose: 1 mg Insulin Aspart (Novolog) 0 unit SC ACHS [facility] PRN Reason: Protocol Last Admin: 04/24/18 07:53 Dose: Not Given Insulin Detemir (Levemir) 40 unit SC [facility] Last Admin: 04/23/18 21:26 Dose: 40 unit Metformin HCl (Glucophage) 1,000 mg PO BID [facility] Last Admin: 04/24/18 09:48 Dose: 1,000 mg Metoclopramide HCl (Reglan) 10 mg PO ACHS [facility] Last Admin: 04/24/18 08:30 Dose: 10 mg Pantoprazole Sodium (Protonix Ec Tab) 40 mg PO DAILY [facility] Last Admin: 04/24/18 09:47 Dose: 40 mg Prednisone (Prednisone Tab) 20 mg PO DAILY [facility] Last Admin: 04/24/18 09:47 Dose: 20 mg Rifaximin (Xifaxan) 550 mg PO BID [facility] PRN Reason: Protocol Last Admin: 04/24/18 09:49 Dose: 550 mg Sertraline HCl (Zoloft) 100 mg PO [facility] Last Admin: 04/23/18 21:25 Dose: 100 mg - Labs Labs: 04/24/18 08:59 04/24/18 08:59 PT 24.5 SECONDS (9.7-12.2) H 04/22/18 14:35 INR 2.2 04/22/18 14:35 APTT 40 SECONDS (21-34) H 04/22/18 14:35 - Constitutional Appears: No Acute Distress - Head Exam Head Exam: ATRAUMATIC, NORMOCEPHALIC - Eye Exam Eye Exam: EOMI, PERRL - Respiratory Exam Respiratory Exam: Clear to Ausculation Bilateral, NORMAL BREATHING PATTERN - Cardiovascular Exam Cardiovascular Exam: REGULAR RHYTHM, +S1 - GI/Abdominal Exam GI & Abdominal Exam: Soft, Normal Bowel Sounds. absent: Tenderness - Back Exam Back Exam: NORMAL INSPECTION Assessment and Plan (1) B12 deficiency anemia Status: Acute (2) Celiac disease Status: Acute (3) Symptomatic anemia Assessment & Plan: For colonoscopy to be done tomorrow am Prep orders as written Status: Acute
[2018-04-24] MEDS ORDERED: Bisacodyl 5mg EC Tab PO ONE (14:00)
[2018-04-24] MEDS ORDERED: Peg-Electrolyte Oral Soln 4L (Golytely) PO ONE ×2 (15:00→21:00)
[2018-04-24] MEDS: Insulin Detemir 100 units/ml Vial (Levemir) SC SCH (22:33)
[2018-04-25] MEDS: (Novolog) Insulin Aspart, Recombinant 100 u/ml 10 ml vial SC SCH ×4 (07:30→21:46)
[2018-04-25 07:39] LABS: PROTHROMBIN TIME 13.4 SECONDS (9.7-12.2)
[2018-04-25 07:40] LABS: INR 1.2
[2018-04-25 07:44] LABS: BASO # 0.2 K/uL (0.0-0.2); BASO % 1.7 % (0.0-2.0); EOS # 0.1 K/uL (0.0-0.7); EOS % 1.1 % (0.0-4.0); HEMOGLOBIN 8.7 g/dL (11.0-16.0); LYMPH % 19.5 % (20.0-40.0); MEAN CELL VOLUME 57.2 fL (81.0-99.0); MEAN CORPUSCULAR HEMOGLOBIN 16.2 pg (27.0-31.0); MEAN CORPUSCULAR HGB CONC 28.2 g/dL (33.0-37.0); MEAN PLATELET VOLUME 8.6 fL (7.2-11.7); MONO # 0.6 K/uL (0.0-0.8); MONO % 6.3 % (0.0-10.0); NEUT # 7.1 K/uL (1.8-7.0); NEUT % 71.4 % (50.0-75.0); NRBC % 0.2 % (0.0-2.0); RBC 5.39 Mil/uL (3.80-5.20); RED CELL DISTRIBUTION WIDTH 30.9 % (11.5-14.5)
--- NOTE | 2018-04-25 07:47 | CP.PCM.PN ---
Subjective - Date & Time of Evaluation Date of Evaluation: 04/25/18 Time of Evaluation: 08:00 - Subjective Subjective: PGY 3 medicine progress note for Dr. Choi: Patient was seen and examined at bedside. SOB improving. She is s/p colonoscopy this morning. Denies f/c, chest pain, change in vision, palpitations, constipation, LE edema, bruising, change in urinary stream, or any additional acute complaints. Objective - Vital Signs/Intake and Output Vital Signs (last 24 hours): Temp Pulse Resp BP Pulse Ox 98 F 86 20 125/69 100 04/25/18 04:51 04/25/18 04:51 04/25/18 04:51 04/25/18 04:51 04/25/18 04:51 - Medications Medications: Current Medications Alprazolam (Xanax) 0.25 mg PO [facility] Stop: 04/29/18 22:01 Last Admin: 04/24/18 21:39 Dose: 0.25 mg Clonidine HCl (Catapres) 0.3 mg PO DAILY [facility] Last Admin: 04/24/18 09:49 Dose: 0.3 mg Cyanocobalamin (Vitamin B12 1000 Mcg/Ml Inj) 1,000 mcg IM QD5 [facility] Cyclobenzaprine HCl (Flexeril) 10 mg PO TIDPC [facility] Last Admin: 04/24/18 17:31 Dose: 10 mg Diltiazem HCl (Cardizem Sr) 60 mg PO BID [facility] Last Admin: 04/24/18 17:31 Dose: 60 mg Donepezil HCl (Aricept) 5 mg PO DAILY [facility] Last Admin: 04/24/18 09:48 Dose: 5 mg Enalapril Maleate (Vasotec) 5 mg PO DAILY [facility] Last Admin: 04/24/18 09:48 Dose: 5 mg Fenofibrate (Tricor) 145 mg PO [facility] Last Admin: 04/24/18 21:39 Dose: 145 mg Ferric Sodium Gluconate Complex (Ferrlecit) 125 mg IVPB DAILY [facility] Stop: 05/01/18 10:01 Last Admin: 04/24/18 09:49 Dose: 125 mg Ferric Sodium Gluconate Complex (Ferrlecit) 125 mg IVPB DAILY [facility] Stop: 05/03/18 10:01 Folic Acid (Folic Acid) 1 mg PO DAILY [facility] Last Admin: 04/24/18 09:49 Dose: 1 mg Insulin Aspart (Novolog) 0 unit SC [facility] PRN Reason: Protocol Last Admin: 04/24/18 22:33 Dose: Not Given Insulin Detemir (Levemir) 40 unit SC [facility] Last Admin: 04/24/18 22:33 Dose: Not Given Metformin HCl (Glucophage) 1,000 mg PO BID [facility] Last Admin: 04/24/18 17:31 Dose: 1,000 mg Metoclopramide HCl (Reglan) 10 mg PO [facility] Last Admin: 04/24/18 21:39 Dose: 10 mg Pantoprazole Sodium (Protonix Ec Tab) 40 mg PO DAILY [facility] Last Admin: 04/24/18 09:47 Dose: 40 mg Prednisone (Prednisone Tab) 20 mg PO DAILY [facility] Last Admin: 04/24/18 09:47 Dose: 20 mg Rifaximin (Xifaxan) 550 mg PO BID [facility] PRN Reason: Protocol Last Admin: 04/24/18 17:31 Dose: 550 mg Sertraline HCl (Zoloft) 100 mg PO [facility] Last Admin: 04/24/18 21:39 Dose: 100 mg - Labs Labs: 04/24/18 08:59 04/24/18 08:59 PT 13.4 SECONDS (9.7-12.2) H D 04/25/18 07:22 INR 1.2 D 04/25/18 07:22 APTT 27 SECONDS (21-34) D 04/25/18 07:22 - Constitutional Appears: Non-toxic, No Acute Distress - Head Exam Head Exam: NORMAL INSPECTION - Eye Exam Eye Exam: Normal appearance - ENT Exam ENT Exam: Mucous Membranes Moist - Respiratory Exam Respiratory Exam: Clear to Ausculation Bilateral, NORMAL BREATHING PATTERN. absent: Respiratory Distress - Cardiovascular Exam Cardiovascular Exam: REGULAR RHYTHM, +S1, +S2 - GI/Abdominal Exam GI & Abdominal Exam: Soft, Normal Bowel Sounds. absent: Distended, Firm, Guarding, Tenderness - Extremities Exam Extremities Exam: Normal Inspection. absent: Calf Tenderness, Pedal Edema - Back Exam Back Exam: NORMAL INSPECTION - Neurological Exam Neurological Exam: Alert, Awake, Normal Gait, Oriented x3 Neuro motor strength exam: Left Upper Extremity: 5, Right Upper Extremity: 5, Left Lower Extremity: 5, Right Lower Extremity: 5 - Psychiatric Exam Psychiatric exam: Normal Affect, Normal Mood - Skin Skin Exam: Normal Color Assessment and Plan - Assessment and Plan (Free Text) Assessment: Anemia Hbg 8.7 today with low MCV Ferritin 5.4 Folic Acid 1mg PO daily Ferrlicit 125mg IVPB qd in AM Was given 1 unit PRBC f/u hemoglobin electrophoresis results Warfarin and ASA help Dr. Dawn consulted - for IVC placements - help appreciated Hemorrhoids r/o GI bleed - colonoscopy on 04/25 showed hemorrhoids, prior anastamosis and anal stricture Fecal occult negative GI consult, Dr. Marr Warfarin and ASA held - will likely not restart Anal Stricture Found on colonoscopy on 04/25 Will need referral outpatient to colorectal surgeon for repair Pulmonary Fibrosis Prednisone 20mg po qd Diabetes Lantus 40u SC HS Novolog ISS ACHS high dose Metformin 1000mg po BID Reglan 10mf PO ACJS -Hold home Novolog 30u SC pre-meal insuline (see how pt does on hospital diet) -Hold Glipizide 5mg BID (see how pt does on hospital diet) - HbA1c 6.4 Vitamin B12 def 1000 mcg IM every 5 days HTN Clonidine 0.3mg qd Enalapril 5mg PO qd Cardizem 60mg PO BID [facility] Fenofibrate 145 HS Anxiety / Depression Zoloft 100mg PO HS Xanax 0.25mg po HS Dementia Aricept 5mg PO daily Prophylaxis scds hold heparin 2/2 gi bleed Protonix 40mg qd All medical management and orders as per Dr. Che Choi. Jessica Napoles D.O. PGY3
[2018-04-25 07:59] LABS: ALB/GLOB RATIO 1.4 (1.0-2.1); ALT/SGPT 53 U/L (9-52); AST/SGOT 114 U/L (14-36); BLOOD UREA NITROGEN 8 mg/dL (7-17); CALCIUM 8.8 mg/dl (8.6-10.4); GFR AFRICAN-AMERICAN > 60; GFR NON-AFRICAN AMERICAN > 60
[2018-04-25] MEDS ORDERED: Lidocaine Hydrochloride 5 ML INJ ONE (09:26)
[2018-04-25] MEDS ORDERED: Propofol 10 mg/ml Inj (20 ML) ONE ×2 (09:27)
[2018-04-25] MEDS: Magnesium Sulfate 1 gm in D5W 1 GM/100 ML BAG IVPB SCH ×2 (11:30→11:47)
[2018-04-25] MEDS: Pantoprazole 40 mg EC Tab PO SCH (11:34)
[2018-04-25] MEDS: diltiaZEM 60 mg ER Cap PO SCH ×2 (11:36→18:04)
[2018-04-25] MEDS: Ferric Sodium Gluconat Complex 62.5 mg/5 ml Vial IVPB SCH ×2 (11:40)
--- NOTE | 2018-04-25 13:01 | CP.PCM.CON ---
History of Present Illness - History of Present Illness History of Present Illness: SURGERY NOTE FOR DR GALVAN 62F presented to hospital from outpatient after having blood drawn showing low hgb. Patient has a history of pulmonary embolism. Currently denies any symptoms , denies chest pain, shortness of breath, abdominal pain. PMHx: Hemorrhoids (internal / external), celiac dz, PE, Pulmonary Fibrosis, DM, HTN, HLD, depression PSHx: Appendectomy, Cholecystectomy, Endoscopy Allergies: as per chart Past Patient History - Past Medical History & Family History Past Medical History?: Yes - Past Social History Smoking Status: Never Smoked - CARDIAC Hx Cardiac Disorders: Yes Hx Hypercholesterolemia: Yes Hx Hypertension: Yes - PULMONARY Hx Respiratory Disorders: Yes Other/Comment: PULMONARY Fibrosis, oxygen dependant. - NEUROLOGICAL Hx Neurological Disorder: Yes Hx Dizziness: Yes - HEENT Hx HEENT Problems: No - RENAL Hx Chronic Kidney Disease: No - ENDOCRINE/METABOLIC Hx Endocrine Disorders: Yes Hx Diabetes Mellitus Type 2: Yes - HEMATOLOGICAL/ONCOLOGICAL Hx Blood Disorders: No - INTEGUMENTARY Hx Dermatological Problems: No - MUSCULOSKELETAL/RHEUMATOLOGICAL Hx Musculoskeletal Disorders: Yes Hx Arthritis: Yes (B/L KNEE) Hx Falls: No Hx Osteoporosis: Yes - GASTROINTESTINAL Hx Gastrointestinal Disorders: Yes Hx Crohn's Disease: Yes Hx Hemorrhoids: Yes - GENITOURINARY/GYNECOLOGICAL Hx Genitourinary Disorders: No - PSYCHIATRIC Hx Psychophysiologic Disorder: Yes Hx Anxiety: Yes Hx Depression: Yes Hx Substance Use: No - SURGICAL HISTORY Hx Surgeries: Yes Hx Appendectomy: Yes Hx Cholecystectomy: Yes Hx Hysterectomy: Yes - ANESTHESIA Hx Anesthesia: Yes Hx Anesthesia Reactions: No Hx Malignant Hyperthermia: No Meds Allergies/Adverse Reactions: Allergies Allergy/AdvReac Type Severity Reaction Status Date / Time acetaminophen [From Tylenol] Allergy ITCHING Verified 04/22/18 14:04 codeine Allergy ITCHING Verified 04/22/18 14:04 - Medications Medications: Current Medications Alprazolam (Xanax) 0.25 mg PO HS [facility] Stop: 04/29/18 22:01 Last Admin: 04/24/18 21:39 Dose: 0.25 mg Clonidine HCl (Catapres) 0.3 mg PO DAILY [facility] Last Admin: 04/25/18 11:27 Dose: 0.3 mg Cyanocobalamin (Vitamin B12 1000 Mcg/Ml Inj) 1,000 mcg IM QD5 [facility] Last Admin: 04/25/18 11:32 Dose: 1,000 mcg Cyclobenzaprine HCl (Flexeril) 10 mg PO TIDPC [facility] Last Admin: 04/25/18 11:40 Dose: 10 mg Diltiazem HCl (Cardizem Sr) 60 mg PO BID [facility] Last Admin: 04/25/18 11:36 Dose: 60 mg Donepezil HCl (Aricept) 5 mg PO DAILY [facility] Last Admin: 04/25/18 11:31 Dose: 5 mg Enalapril Maleate (Vasotec) 5 mg PO DAILY [facility] Last Admin: 04/25/18 11:37 Dose: 5 mg Fenofibrate (Tricor) 145 mg PO HS [facility] Last Admin: 04/24/18 21:39 Dose: 145 mg Ferric Sodium Gluconate Complex (Ferrlecit) 125 mg IVPB DAILY [facility] Stop: 05/03/18 10:01 Last Admin: 04/25/18 11:40 Dose: 125 mg Folic Acid (Folic Acid) 1 mg PO DAILY [facility] Last Admin: 04/25/18 11:28 Dose: 1 mg Insulin Aspart (Novolog) 0 unit SC [facility] PRN Reason: Protocol Last Admin: 04/25/18 07:30 Dose: Not Given Insulin Detemir (Levemir) 40 unit SC [facility] Last Admin: 04/24/18 22:33 Dose: Not Given Metformin HCl (Glucophage) 1,000 mg PO BID [facility] Last Admin: 04/25/18 11:25 Dose: 1,000 mg Metoclopramide HCl (Reglan) 10 mg PO [facility] Last Admin: 04/25/18 12:26 Dose: 10 mg Pantoprazole Sodium (Protonix Ec Tab) 40 mg PO DAILY [facility] Last Admin: 04/25/18 11:34 Dose: 40 mg Prednisone (Prednisone Tab) 20 mg PO DAILY [facility] Last Admin: 04/25/18 11:29 Dose: 20 mg Rifaximin (Xifaxan) 550 mg PO BID [facility] PRN Reason: Protocol Last Admin: 04/25/18 11:35 Dose: 550 mg Sertraline HCl (Zoloft) 100 mg PO [facility] Last Admin: 04/24/18 21:39 Dose: 100 mg Physical Exam - Constitutional Appears: Non-toxic, No Acute Distress - Eye Exam Eye Exam: EOMI, PERRL - ENT Exam ENT Exam: Mucous Membranes Moist - Respiratory Exam Respiratory Exam: Clear to Auscultation Bilateral, NORMAL BREATHING PATTERN - Cardiovascular Exam Cardiovascular Exam: REGULAR RHYTHM, +S1, +S2 - GI/Abdominal Exam GI & Abdominal Exam: Soft. absent: Distended, Firm, Guarding, Rebound, Rigid, Tenderness - Extremities Exam Extremities exam: Negative for: pedal edema, tenderness - Neurological Exam Neurological exam: Alert, Oriented x3 - Psychiatric Exam Psychiatric exam: Normal Affect, Normal Mood - Skin Skin Exam: Dry, Intact, Normal Color, Warm Results - Vital Signs Recent Vital Signs: Last Vital Signs Temp 97.3 F L 04/25/18 09:55 Pulse 89 04/25/18 10:25 Resp 14 04/25/18 10:25 BP 137/75 04/25/18 11:37 Pulse Ox 100 04/25/18 10:25 - Labs Result Diagrams: 04/25/18 07:22 04/25/18 07:22 Labs: Laboratory Results - last 24 hr 04/24/18 04/24/18 04/25/18 16:10 21:56 06:31 WBC RBC Hgb Hct MCV MCH MCHC RDW Plt Count MPV Neut % (Auto) Lymph % (Auto) [place] % (Auto) Eos % (Auto) Baso % (Auto) Neut # (Auto) Lymph # (Auto) [place] # (Auto) Eos # (Auto) Baso # (Auto) Differential Comment PT INR APTT Sodium Potassium Chloride Carbon Dioxide Anion Gap BUN Creatinine Est GFR ( Amer) Est GFR (Non-Af Amer) POC Glucose (mg/dL) 178 H 132 H 131 H Random Glucose Calcium Phosphorus Magnesium Total Bilirubin AST ALT Alkaline Phosphatase Total Protein Albumin Globulin Albumin/Globulin Ratio 04/25/18 04/25/18 04/25/18 07:22 07:22 07:22 WBC 10.0 RBC 5.39 H Hgb 8.7 L Hct 30.9 L MCV 57.2 L MCH 16.2 L MCHC 28.2 L RDW 30.9 H Plt Count 202 MPV 8.6 Neut % (Auto) 71.4 Lymph % (Auto) 19.5 L [place] % (Auto) 6.3 Eos % (Auto) 1.1 Baso % (Auto) 1.7 Neut # (Auto) 7.1 H Lymph # (Auto) 2.0 [place] # (Auto) 0.6 Eos # (Auto) 0.1 Baso # (Auto) 0.2 Differential Comment PT 13.4 H D INR 1.2 D APTT 27 D Sodium 140 Potassium 3.6 Chloride 102 Carbon Dioxide 26 Anion Gap 16 BUN 8 Creatinine 0.8 Est GFR ( Amer) > 60 Est GFR (Non-Af Amer) > 60 POC Glucose (mg/dL) Random Glucose 139 H Calcium 8.8 Phosphorus 2.5 Magnesium 1.4 L Total Bilirubin 1.1 AST 114 H D ALT 53 H D Alkaline Phosphatase 72 Total Protein 7.0 Albumin 4.0 Globulin 2.9 Albumin/Globulin Ratio 1.4 04/25/18 11:59 WBC RBC Hgb Hct MCV MCH MCHC RDW Plt Count MPV Neut % (Auto) Lymph % (Auto) [place] % (Auto) Eos % (Auto) Baso % (Auto) Neut # (Auto) Lymph # (Auto) [place] # (Auto) Eos # (Auto) Baso # (Auto) Differential Comment PT INR APTT Sodium Potassium Chloride Carbon Dioxide Anion Gap BUN Creatinine Est GFR ( Amer) Est GFR (Non-Af Amer) POC Glucose (mg/dL) 188 H Random Glucose Calcium Phosphorus Magnesium Total Bilirubin AST ALT Alkaline Phosphatase Total Protein Albumin Globulin Albumin/Globulin Ratio Assessment & Plan - Assessment and Plan (Free Text) Assessment: 17F with pmh PE and anemia Plan: - Plan for IVC filter today Further recs discuss with Dr. López López, PGY2
[2018-04-25] MEDS ORDERED: ceFAZolin IV 1 gm in Dextrose 2 GM/100 ML BAG IVPB ONE (15:40)
[2018-04-25] MEDS ORDERED: Lidocaine Hydrochloride 0 ML INJ ONE (15:40)
[2018-04-25] MEDS ORDERED: Iodixanol 320 MG/ML 200 ML BOTTLE IV ONE (16:00)
[2018-04-25] MEDS ORDERED: HEPARIN-NS 5,000 UNITS/500 ML 5,000 UNIT/500 ML BAG IV ONE (16:05)
[2018-04-25] MEDS ORDERED: HYDROmorphone 0.5 mg/0.5 ml ISec IVP PRN (16:22)
--- NOTE | 2018-04-25 16:35 | PCM.SURG1 ---
Surgeon's Initial Post Op Note - Surgeon's Notes Surgeon: MD López Mononitrotoluene Operator: MARY LópezY2 Pre-Operative Diagnosis: PE/Anemia Operative Findings: n/a Post-Operative Diagnosis: same Operation Performed: IVC filter placement via right femoral vein Specimen/Specimens Removed: n/a Estimated Blood Loss: EBL {In ML}: 5 Date of Surgery/Procedure: 04/25/18 Time of Surgery/Procedure: 15:30
[2018-04-25] MEDS: Insulin Detemir 100 units/ml Vial (Levemir) SC SCH (21:45)
--- NOTE | 2018-04-26 03:49 | OP ---
PROCEDURE DATE: 04/25/2018 PREOPERATIVE DIAGNOSES: Pulmonary embolism, gastrointestinal bleed. POSTOPERATIVE DIAGNOSES: Pulmonary embolism, gastrointestinal bleed. PROCEDURES CARRIED OUT: Placement of inferior vena cava filter Option ELITE via right femoral vein with C-arm fluoroscopy, ultrasound-guided puncture. DESCRIPTION OF PROCEDURE: The patient was given local anesthesia using ultrasound guidance and micropuncture technique. Right femoral vein was accessed. Under fluoroscopic control, the guidewire was advanced centrally. A sheath dilator was then deployed at the appropriate location. It was flushed with heparinized saline and was found to be in good location. There were no operative complications or problems associated with this. It was in a good upright position without any significant tilt at the level of the renal veins. Ultrasound images of the groin showed that the vein was approximately 16 mm in diameter with normal compressibility and no intraluminal thrombosis. Amos Dawn Jr., MD
[2018-04-26 07:30] LABS: BASO # 0.2 K/uL (0.0-0.2); BASO % 1.4 % (0.0-2.0); EOS # 0.1 K/uL (0.0-0.7); EOS % 0.6 % (0.0-4.0); LYMPH # 1.9 K/uL (1.0-4.3); LYMPH % 15.5 % (20.0-40.0); MEAN CELL VOLUME 58.3 fL (81.0-99.0); MEAN CORPUSCULAR HEMOGLOBIN 16.6 pg (27.0-31.0); MEAN CORPUSCULAR HGB CONC 28.4 g/dL (33.0-37.0); MEAN PLATELET VOLUME 8.6 fL (7.2-11.7); MONO # 0.9 K/uL (0.0-0.8); MONO % 7.4 % (0.0-10.0); NEUT # 9.3 K/uL (1.8-7.0); NEUT % 75.1 % (50.0-75.0); NRBC % 0.1 % (0.0-2.0); RBC 5.44 Mil/uL (3.80-5.20); RED CELL DISTRIBUTION WIDTH 31.4 % (11.5-14.5); WHITE BLOOD COUNT 12.4 K/uL (4.8-10.8)
--- NOTE | 2018-04-26 07:46 | CP.PCM.PN ---
Subjective - Date & Time of Evaluation Date of Evaluation: 04/26/18 Time of Evaluation: 07:44 - Subjective Subjective: Vascular Surgery Progress Note for Dr. Dawn This 62F was seen and evaluated this AM at bedside no acute events overnigt. She denies any pain at the access site. She denies any chest pain or SOB any nause vomiting or diarrhea. Objective - Vital Signs/Intake and Output Vital Signs (last 24 hours): Temp Pulse Resp BP Pulse Ox 98.5 F 87 20 106/65 95 04/25/18 23:50 04/25/18 23:50 04/25/18 23:50 04/25/18 23:50 04/25/18 23:50 Intake and Output: 04/26/18 04/26/18 06:59 18:59 Intake Total 400 Output Total 550 Balance -150 - Medications Medications: Current Medications Alprazolam (Xanax) 0.25 mg PO HS [facility] Stop: 04/29/18 22:01 Last Admin: 04/25/18 21:45 Dose: 0.25 mg Clonidine HCl (Catapres) 0.3 mg PO DAILY [facility] Last Admin: 04/25/18 11:27 Dose: 0.3 mg Cyanocobalamin (Vitamin B12 1000 Mcg/Ml Inj) 1,000 mcg IM QD5 [facility] Last Admin: 04/25/18 11:32 Dose: 1,000 mcg Cyclobenzaprine HCl (Flexeril) 10 mg PO TIDPC [facility] Last Admin: 04/25/18 18:04 Dose: 10 mg Diltiazem HCl (Cardizem Sr) 60 mg PO BID [facility] Last Admin: 04/25/18 18:04 Dose: 60 mg Donepezil HCl (Aricept) 5 mg PO DAILY [facility] Last Admin: 04/25/18 11:31 Dose: 5 mg Enalapril Maleate (Vasotec) 5 mg PO DAILY [facility] Last Admin: 04/25/18 11:37 Dose: 5 mg Fenofibrate (Tricor) 145 mg PO HS [facility] Last Admin: 04/25/18 21:45 Dose: 145 mg Ferric Sodium Gluconate Complex (Ferrlecit) 125 mg IVPB DAILY [facility] Stop: 05/03/18 10:01 Last Admin: 04/25/18 11:40 Dose: 125 mg Folic Acid (Folic Acid) 1 mg PO DAILY [facility] Last Admin: 04/25/18 11:28 Dose: 1 mg Insulin Aspart (Novolog) 0 unit SC [facility] PRN Reason: Protocol Last Admin: 04/25/18 21:46 Dose: 2 unit Insulin Detemir (Levemir) 40 unit SC [facility] Last Admin: 04/25/18 21:45 Dose: 40 unit Metformin HCl (Glucophage) 1,000 mg PO BID [facility] Last Admin: 04/25/18 18:05 Dose: 1,000 mg Metoclopramide HCl (Reglan) 10 mg PO ACHS [facility] Last Admin: 04/25/18 21:45 Dose: 10 mg Pantoprazole Sodium (Protonix Ec Tab) 40 mg PO DAILY [facility] Last Admin: 04/25/18 11:34 Dose: 40 mg Prednisone (Prednisone Tab) 20 mg PO DAILY [facility] Last Admin: 04/25/18 11:29 Dose: 20 mg Sertraline HCl (Zoloft) 100 mg PO HS [facility] Last Admin: 04/25/18 21:45 Dose: 100 mg - Labs Labs: 04/25/18 07:22 04/25/18 07:22 PT 13.4 SECONDS (9.7-12.2) H D 04/25/18 07:22 INR 1.2 D 04/25/18 07:22 APTT 27 SECONDS (21-34) D 04/25/18 07:22 - Constitutional Appears: Non-toxic, No Acute Distress - Head Exam Head Exam: ATRAUMATIC, NORMOCEPHALIC - Eye Exam Eye Exam: EOMI - ENT Exam ENT Exam: Mucous Membranes Moist - Respiratory Exam Respiratory Exam: NORMAL BREATHING PATTERN - Cardiovascular Exam Cardiovascular Exam: +S1, +S2 - Extremities Exam Additional comments: Access site without any bleeding or hematoma - Neurological Exam Neurological Exam: Alert, Awake - Psychiatric Exam Psychiatric exam: Normal Affect, Normal Mood - Skin Skin Exam: Dry, Intact Assessment and Plan - Assessment and Plan (Free Text) Assessment: 62F with PE pod#1 s/p IVC filter placement and doing well No surgical intervention at this time D/W Dr. Katty Schneider PGY2
[2018-04-26 07:54] LABS: ALB/GLOB RATIO 1.3 (1.0-2.1); ALBUMIN 3.9 g/dL (3.5-5.0); ALT/SGPT 51 U/L (9-52); AST/SGOT 96 U/L (14-36); BLOOD UREA NITROGEN 10 mg/dL (7-17); CALCIUM 8.7 mg/dl (8.6-10.4); GFR AFRICAN-AMERICAN > 60; GFR NON-AFRICAN AMERICAN > 60
[2018-04-26] MEDS: (Novolog) Insulin Aspart, Recombinant 100 u/ml 10 ml vial SC SCH ×2 (08:40→12:59)
[2018-04-26] MEDS: Ferric Sodium Gluconat Complex 62.5 mg/5 ml Vial IVPB SCH (10:14)
[2018-04-26] MEDS: Pantoprazole 40 mg EC Tab PO SCH (10:16)
[2018-04-26] MEDS: diltiaZEM 60 mg ER Cap PO SCH (10:16)
--- NOTE | 2018-04-26 12:09 | CARD ---
APPROVED REPORT EKG Measurement Heart [id number] <Conclusion> Sinus tachycardia Otherwise normal ECG
[2018-04-26 14:39] VITALS: BP 114/65; PULSE 95; RESP 18; TEMP 98.3; O2SAT 99
[2018-04-26 14:56] LABS: HEMOGLOBIN A 97.3 Percent (>96.0); HEMOGLOBIN A2 1.7 Percent (1.8-3.5)
--- NOTE | 2018-04-26 16:15 | CP.PCM.PN ---
Subjective - Date & Time of Evaluation Date of Evaluation: 04/26/18 Time of Evaluation: 09:25 - Subjective Subjective: Medicine progress note for Dr. Choi's service Patient seen and examined. Patient feels well s/p colonoscopy yesterday. She is eating well today and feels strong to go home. Objective - Vital Signs/Intake and Output Vital Signs (last 24 hours): Temp Pulse Resp BP Pulse Ox 98.3 F 95 H 18 114/65 99 04/26/18 14:15 04/26/18 14:15 04/26/18 14:15 04/26/18 14:15 04/26/18 14:15 Intake and Output: 04/26/18 04/26/18 06:59 18:59 Intake Total 400 500 Output Total 550 Balance -150 500 - Labs Labs: 04/26/18 07:17 04/26/18 07:17 PT 13.4 SECONDS (9.7-12.2) H D 04/25/18 07:22 INR 1.2 D 04/25/18 07:22 APTT 27 SECONDS (21-34) D 04/25/18 07:22 - Constitutional Appears: No Acute Distress - Head Exam Head Exam: ATRAUMATIC, NORMOCEPHALIC - Eye Exam Eye Exam: EOMI - ENT Exam ENT Exam: Mucous Membranes Moist - Respiratory Exam Respiratory Exam: Clear to Ausculation Bilateral - Cardiovascular Exam Cardiovascular Exam: +S1, +S2 - GI/Abdominal Exam GI & Abdominal Exam: Soft, Normal Bowel Sounds. absent: Tenderness - Extremities Exam Extremities Exam: Normal Inspection - Neurological Exam Neurological Exam: Alert, Awake - Psychiatric Exam Psychiatric exam: Normal Affect - Skin Skin Exam: Warm Assessment and Plan - Assessment and Plan (Free Text) Assessment: Anemia Hbg 9.0 today with low MCV Ferritin 5.4 Folic Acid 1mg PO daily Ferrlicit 125mg IVPB qd in AM Was given 1 unit PRBC f/u hemoglobin electrophoresis results Warfarin and ASA held Dr. Dawn consulted - for IVC placement- done 04/25 Hemorrhoids r/o GI bleed - colonoscopy on 04/25 showed hemorrhoids, prior anastamosis and anal stricture Fecal occult negative GI consult, Dr. Marr Warfarin and ASA held - will not restart Anal Stricture Found on colonoscopy on 04/25 Will need referral outpatient to colorectal surgeon for repair Pulmonary Fibrosis Prednisone 20mg po qd Diabetes Lantus 40u SC HS Novolog ISS ACHS high dose Metformin 1000mg po BID Reglan 10mf PO ACJS -Hold home Novolog 30u SC pre-meal insuline (see how pt does on hospital diet) -Hold Glipizide 5mg BID (see how pt does on hospital diet) - HbA1c 6.4 Vitamin B12 def 1000 mcg IM every 5 days HTN Clonidine 0.3mg qd Enalapril 5mg PO qd Cardizem 60mg PO BID [facility] Fenofibrate 145 HS Anxiety / Depression Zoloft 100mg PO HS Xanax 0.25mg po HS Dementia Aricept 5mg PO daily Prophylaxis scds hold heparin 2/2 gi bleed Protonix 40mg qd All medical management and orders as per Dr. Che Choi. Patient is stable for discharge home per Dr. Choi. Patient is to follow up with her primary doctor, Dr. Choi, within the next week. Patient is to follow up with Dr. Marr in the office in 2 weeks. She is to discontinue taking warfarin and aspirin. She is to continue her other home medications. She is being discharged with new prescriptions for iron tablets daily and daily sublingual B12 vitamins. She is to return to the ER if symptoms worsen or reoccur.
--- NOTE | 2018-04-26 16:22 | RAD ---
PROCEDURE: HISTORY: As Above COMPARISON: None TECHNIQUE: Total fluoroscopic time utilized during the procedure: 85.7 seconds. Total dose -0.00 mGy cm squared listed FINDINGS: Submitted images from the current procedure: 2 Please refer to the physician's notes performing the procedure. IMPRESSION: Less than 1 hour fluoroscopic time utilized during performance of the procedure
[2018-04-26 16:57] LABS: METHYLMALONIC ACID,SERUM 362 nmol/L (87-318)
--- NOTE | 2018-04-30 09:13 | DS ---
Ms. Mack was admitted to the hospital with chief complaint of diabetes, fatigue, tiredness. The patient was placed on bedrest, supportive care. The patient showed improvement. Discharged to follow up as outpatient. Janki Choi MD
== END 2018-04-26 14:21 | disposition home or self-care (01) | DRG 628 ==
LOC: C.ER 13:54 → C.9E 14:48 → C.6T 19:35
PROVIDERS: ADMIT Internal Medicine Pulmonary Disease; ATTEND Internal Medicine Pulmonary Disease
PROC: 0DJD8ZZ Inspection of Lower Intestinal Tract, Via Natural or Artificial Opening Endoscopic (ICD-10-PCS; 2018-04-25)
PROC: 06H03DZ Insertion of Intraluminal Device into Inferior Vena Cava, Percutaneous Approach (ICD-10-PCS; principal; 2018-04-25 09:36)
DX: E11.9 Type 2 diabetes mellitus without complications (principal); I26.99 Other pulmonary embolism without acute cor pulmonale; K50.90 Crohn's disease, unspecified, without complications; D50.9 Iron deficiency anemia, unspecified; D51.9 Vitamin B12 deficiency anemia, unspecified; E78.5 Hyperlipidemia, unspecified; F03.90 Unspecified dementia, unspecified severity, without behavioral disturbance, psychotic disturbance, mood disturbance, and anxiety; F41.9 Anxiety disorder, unspecified; I10 Essential (primary) hypertension; J84.10 Pulmonary fibrosis, unspecified; K62.4 Stenosis of anus and rectum; K64.9 Unspecified hemorrhoids; K90.0 Celiac disease; M79.7 Fibromyalgia; M81.0 Age-related osteoporosis without current pathological fracture; Z79.84 Long term (current) use of oral hypoglycemic drugs; Z99.81 Dependence on supplemental oxygen; F32.9 Major depressive disorder, single episode, unspecified